=== PATIENT | male | born 1945 | race Caucasian/White ===

== ENCOUNTER 2016-04-24 17:06 | Observation (INO) | payer MEDICARE, OTHER ==
[~2016-04-24] VITALS: Ht 165.1 cm; Wt 85.2 kg
[~2016-04-24 17:06] MED LIST: OMPR20CCR PO; SIMV40TA5 PO; TERA10CA5 PO
[2016-04-24 17:24] VITALS: BP 156/103; PULSE 86; RESP 12; O2SAT 98
--- NOTE | 2016-04-24 18:30 | DRSVH ---
PROCEDURE: CT BRAIN WITHOUT CONTRAST ([id number]) INDICATIONS: fall, head trauma, LOC TECHNIQUE: Noncontrast 4.5 mm thick angled axial sections acquired from the foramen magnum to the vertex, with c oronal reformats. COMPARISON: None. FINDINGS: Image quality: Excellent. CSF spaces: Basal cisterns are patent. No extra-axial fluid collections. Ventricles are normal in size and shape. Brain: No midline shift. No intracranial masses or hemorrhage. Murillo-white matter interface is norm al. Skull and face: Calvarium and visualized facial bones are intact, without suspicious lesions. Sinuses: Visualized sinuses and mastoids are clear. IMPRESSION: No brain parenchymal injury found, no intracranial hemorrhage identified. Dictated by: Pavan Simmons M.D. on 04/24/2016 at 18:28 Approved by: Pavan Simmons M.D. on 04/24/2016 at 18:29
[2016-04-24 18:48] VITALS: BP 138/96; PULSE 14; RESP 14
[2016-04-24 19:06] LABS: BASOPHILS % (AUTO) 0.6 % (0-3); EOSINOPHILS % (AUTO) 0.6 % (0-5); MONOCYTES % (AUTO) 7.8 % (4-12); Mean Corpuscular Hemoglobin 31.5 pg (27.0-35.0); Mean Corpuscular Volume 90.6 fL (81-100); Platelet Count 145 bil/L (150-400)
[2016-04-24 19:21] LABS: TROPONIN T < 0.010 ug/L (0.0-0.011)
[2016-04-24] MEDS ORDERED: Acetaminophen IV 1,000 MG in IV Premix 1 EACH IV ONE (19:25)
[2016-04-24 19:27] LABS: Magnesium 2.1 mg/dL (1.6-2.6)
[2016-04-24 19:50] LABS: APPEARANCE,URINE CLEAR (CLEAR,HAZY); COLOR,URINE YELLOW (YELLOW); OCCULT BLOOD,URINE TRACE (NEGATIVE); UROBILINOGEN,URINE NORMAL (NORMAL)
[2016-04-24] MEDS ORDERED: 0.9% Sodium Chloride 1,000 ML IV ONE ×2 (19:50→21:25)
[2016-04-24 20:23] VITALS: BP 135/94; PULSE 85; RESP 10; O2SAT 95
--- NOTE | 2016-04-24 20:26 | ED.REPORT ---
HPI-Trauma Minor / Fall Date of Service Apr 24, 2016 ED Provider: Aashish Leigh DO 70yoM with PMH remarkable for GERD and hyperlipidemia presents with ground level fall. The fall reportedly occurred after the patient bumped into his on flat linoleum. The patient has had retrograde amnesia where he does not remember recent events up to three weeks ago when his mother was in the hospital requiring surgery, however fpc memory is intact. The patient denies headaches, neck pain, changes in vision or hearing, trouble with focal weakness or trouble with coordination. The patient has fallen once prior years ago when diagnosed with a UTI. The patient does not have a history of heart arrhythmia and is not on any blood thinner. There is no reported loss of bowel or bladder control. The states that the patient was unresponsive for a few seconds before regaining consciousness as normal. Patient denies any chest pain or palpitations. Nursing Notes Stated Complaint: FALL Chief Complaint: Head, Face, Neck Trauma Nursing Notes Reviewed: Yes Allergies: Coded Allergies: No Known Drug Allergies (Verified Allergy, Unknown, 04/24/16) Scheduled Doxycycline Hyclate (Doxycycline Hyclate) 50 Mg Capsule 1 TABLET PO DAILY Metronidazole (Metronidazole Cream) 45 Gm Cream..g. 1 APPLIC TOP BID Omeprazole (Omeprazole) 20 Mg Capsule.dr 20 MG PO HS Simvastatin (Simvastatin) 40 Mg Tablet 40 MG PO HS Terazosin (Terazosin) 10 Mg Capsule 10 MG PO HS General Time Seen by MD: 17:45 Chief Complaint Fall Hx Obtained From: Patient, Spouse Arrived By: Ambulance Onset Occurred: 1 - 4 hours ago Symptom Duration: Since onset (amnesia since onset) Caused by: Fall on ground Context: Immunizations Unknown Recent Healthcare: No recent doctor visit, No recent hospitalization Similar Sx Previous: No Risk Factors IC Bleed Risk Stratification Risk factors reviewed Nexus C-Spine Criteria No post midline tendernes, Not intoxicated, Normal level or alertness, No focal neuro deficits, No distracting injuries Head CT Imaging Patient Presents WITH: PostTraumatic Amnesia, PROCEED WITH INDICATIONS Non Contrast CT Indicated For: >/= 60 yrs Age Post Traumatic Amnesia Short Term Memory Loss WITH Loss of Conciousness Patient Presents WITHOUT: PostTraumatic Amnesia, PROCEED W/ CONSIDERATIONS RF Statements: Risk factors reviewed Past Medical History Past Medical History on alpha inhibitor consistent with BPH treatment hospitalized once in 40s for intestinal infection without senior care complications Reports: GERD, Hyperlipidemia Past Surgical History skin cancer in approximately 2010 Smoking History Former Smoker Social History Alcohol Use: "Social" Drug Use: Denies drug use Other Social History: Good social support, , Local resident ([place]) Ambulatory Status Independent Review of Systems Basic Review of Systems Cardiovascular: No chest pain, No dyspnea on exertion, No orthopnea, No parox noct dyspnea, No palpitations GI: No abdominal pain, No anorexia, No nausea, No vomiting : No dysuria, No frequency Hematologic: No bleeding, No bruising Endocrine: No cold intolerance, No heat intolerance, No weight gain, No weight loss Allergy / Immune: No allergy Psychiatric: Normal thought content Constitutional: Denies: Chills, Fever Eyes: Denies: Blurred bilateral, Eye pain bilateral, Visual loss bilateral Ears / Nose / Throat: Denies: Earache bilateral, Hearing loss bilateral, Sore throat, Throat pain, Voice change Respiratory: Denies: Dyspnea on exertion, Non-productive cough, Pleuritic pain Musculoskeletal: Denies: Back pain, Extremity pain, Joint pain, Neck pain, Thoracic pain Skin: Denies Bruising, Denies Rash, Denies Unexplained bruises Neurologic: Denies: Bladder dysfunction, Bowel dysfunction, Dizziness, Focal weakness, Headache, Numbness, Slurred speech, Spinning sensation, Vision change Complete sys rev & neg: except as marked. Physical Exam Initial Vital Signs Initial VS: Reviewed Head / Eyes: Atraumatic, Normocephalic, PERRL ENT: Mucous membranes moist, Conjunctiva normal, No scleral icterus Respiratory: Breath sounds normal, Clear to auscultation, No respiratory distress Cardiovascular: Intact distal pulses Abdomen / GI: Soft, Non-tender, No guarding, No rebound, No distention Back: No CVA tenderness Lymphatic: No lymphadenopathy Extremities: Vascular intact, Neuro intact, No swelling, No tenderness Skin: Warm, Dry, No cyanosis Neurologic: Alert, Oriented, Nonfocal Psychiatric: Mood/affect normal, Behavior normal, Normal thought content General/Constitutional: Awake, Alert, No acute distress, Well developed, Cooperative, Not toxic appearing Neck: Atraumatic, Supple, Full range of motion, No swelling, Non-tender, No midline vertebral tend, No JVD, No carotid bruit, Thyroid NL, No tracheal deviation Head / Eyes: Atraumatic, Normocephalic, PERRL, EOMI, No periorbital redness, No periorbital swelling, No scleral icterus, Conjunctiva NL ENT: Atraumatic, Airway patent, Mucous membranes moist, Pharynx NL dual uvula Respiratory / Chest: Breath sounds NL, Breath sounds = bilat, No respiratory distress, No rales, No rhonchi, No wheezing, No chest tenderness, No chest wall deformity, No crepitus Cardiovascular: Heart rate NL, No murmurs, No rubs, Peripheral circulation NL, Pulses = bilaterally Heart Rate / Rhythm: Positive: Irreg irregular rhythm no peripheral edema Abdomen: Atraumatic, Soft, Non-tender, No guarding, No rebound, BS normoactive , No distention Neurologic: Oriented X3, Speech NL, No motor deficits, No sensory deficits, CN II - XII intact, Cerebellar NL, Gait NL retrograde amnesia up to 4 weeks till time of fall Psychiatric: Affect NL, Mood NL, Cognitive function NL, Thought content NL Interpretation & Diagnostics Lab Results Interpretation Test 04/24/16 17:55 04/24/16 19:15 Hold Purple Top Tube Received (Received) Prothrombin Time 10.7sec (8.1-12.5) Prothromb Time International Ratio 1.00ratio Hold Blue Top Tube Received (Received) Magnesium Level 2.1mg/dL (1.6-2.6) Hold Red Top Tube Received (Received) Hold [place] Top Tube Received (Received) Hold Garcia Top Tube Received (Received) Urine Color Yellow (YELLOW) Urine Appearance Clear (CLEAR,HAZY) Urine pH 5.0 (5.0-8.0) Urine Specific [place] 1.020 (1.003-1.035) Urine Protein Negativemg/dL (NEG,TRACE) Urine Glucose (UA) Negativemg/dL (NEGATIVE) Urine Ketones Negativemg/dL (NEGATIVE) Urine Occult Blood Trace (NEGATIVE) Urine Nitrite Negative (NEGATIVE) Urine Bilirubin Negative (NEGATIVE) Urine Urobilinogen Normalmg/dL (NORMAL) Urine Leukocyte Esterase Negative (NEGATIVE) Urine RBC 0-2/hpf (0-2) Urine WBC 0-5/hpf (0-5) Urine Epithelial Cells Few/hpf (NONE-MOD) Urine Crystals None seen (NONE SEEN) Urine Bacteria Few/hpf (NONE-FEW) Urine Hyaline Casts None/lpf (NONE) Urine Granular Casts None seen (NONE SEEN) Urine Waxy Casts None seen (NONE SEEN) Urine Red Blood Cell Casts None seen (NONE SEEN) Urine White Blood Cell Casts None seen (NONE SEEN) Urine Mucus None seen (None Seen) Urine Trichomonas None seen (NONE SEEN) Urine Yeast None (NONE SEEN) Urinalysis Comment None Urine Culture Reflexed Not indicated Re-Eval/Medical Decision Med Decision/Clinical Course 70yoM with GERD, HLD, and BPH presents with syncope. Patient denies chest pain or heart flutter, and family reports no complaints prior to syncope. The patient reportedly had no post ictal period and no new medications added. Neurologic exam shows only retrograde amnesia with normal neurologic exam patient is alert and oriented x2 without date. CBC only shows mild thrombocytopenia. CMP shows elevated Cr and decreased GFR. EKG and Tele shows consistent high PVC burden. Differential diagnosis is vaso-vagal versus dysarrhythmia less likely PE, Seizure, TIA. Counseled Regarding: Diagnosis, Lab results, Need for follow-up, Need for admission (specifically only observation) Discharge & Departure Impression: Primary Impression: Vasovagal syncope Additional Impressions: Vbjrk-nj-htatxsp kidney injury BPH (benign prostatic hypertrophy) Prostatic enlargement morphology: unspecified morphology Lower urinary tract symptom presence: presence of symptoms unspecified Qualified Code: N40.0 - Enlarged prostate without lower urinary tract symptoms Thrombocytopenia Ruled Out: Intracranial bleed, Myocardial infarction, Pulmonary embolism Disposition: ADMITTED TO HOSPITAL Discharge Condition All VS Reviewed: Yes Condition: Stable Referrals: Loco Blue DO (PCP) Attending Statement I saw and examined this patient with Dr. Noel Damon and agree with the above documentation. Although it is felt that this was a vasovagal syncopal episode, a large group of family members who is present with him here today is very uncomfortable taking him home given what they saw happen with his syncopal episode. We have not seen anything here in the emergency room that gives us cause for concern with his labs, head CT, EKG, and telemetry monitoring. He appeared a little dry with an elevation of his creatinine and he received 1 L normal saline IV fluids in the emergency department. Family requesting an observation admission to make sure he has no further episodes. We discussed with him at length the pros and cons of the hospital admission and they are adamant about an admission. He will be placed on telemetry monitoring and may have further tests that could include an echocardiogram or MRI of the brain to further evaluate him during the admission copies to: Loco Blue Nicholas K DO Apr 24, 2016 18:57 Aashish Leigh DO May 03, 2016 13:08 (NEGATIVE) Urine Occult Blood Trace (NEGATIVE) Urine Nitrite Negative (NEGATIVE) Urine Bilirubin Negative (NEGATIVE) Urine Urobilinogen Normalmg/dL (NORMAL) Urine Leukocyte Esterase Negative (NEGATIVE) Urine RBC 0-2/hpf (0-2) Urine WBC 0-5/hpf (0-5) Urine Epithelial Cells Few/hpf (NONE-MOD) Urine Crystals None seen (NONE SEEN) Urine Bacteria Few/hpf (NONE-FEW) Urine Hyaline Casts None/lpf (NONE) Urine Granular Casts None seen (NONE SEEN) Urine Waxy Casts None seen (NONE SEEN) Urine Red Blood Cell Casts None seen (NONE SEEN) Urine White Blood Cell Casts None seen (NONE SEEN) Urine Mucus None seen (None Seen) Urine Trichomonas None seen (NONE SEEN) Urine Yeast None (NONE SEEN) Urinalysis Comment None Urine Culture Reflexed Not indicated Re-Eval/Medical Decision Med Decision/Clinical Course 70yoM with GERD, HLD, and BPH presents with syncope. Patient denies chest pain or heart flutter, and family reports no complaints prior to syncope. The patient reportedly had no post ictal period and no new medications added. Neurologic exam shows only retrograde amnesia with normal neurologic exam patient is alert and oriented x2 without date. CBC only shows mild thrombocytopenia. CMP shows elevated Cr and decreased GFR. EKG and Tele shows consistent high PVC burden. Differential diagnosis is vaso-vagal versus dysarrhythmia less likely PE, Seizure, TIA. Counseled Regarding: Diagnosis, Lab results, Need for follow-up, Need for admission (specifically only observation) Discharge & Departure Impression: Primary Impression: Vasovagal syncope Additional Impressions: Xbhga-jy-twkpmft kidney injury BPH (benign prostatic hypertrophy) Thrombocytopenia Ruled Out: Intracranial bleed, Myocardial infarction, Pulmonary embolism Disposition: ADMITTED TO HOSPITAL Discharge Condition All VS Reviewed: Yes Condition: Stable Referrals: Loco Blue DO (PCP) copies to: Loco Blue Nicholas K DO Apr 24, 2016 18:57
[2016-04-24] MEDS ORDERED: Polyethylene Glycol (PEG) 17 Gm Powder PO PRN (21:25)
[2016-04-24] MEDS ORDERED: Ondansetron 2 mg/mL 2 mL Inj IVPUSH PRN (21:25)
[2016-04-24] MEDS ORDERED: Alum-Mag Hydrox-Simeth 30 mL Suspension PO PRN (21:25)
[2016-04-24] MEDS ORDERED: DOXY50CA2 PO (21:55)
[2016-04-24 22:18] VITALS: BP 135/89; PULSE 86; RESP 13; O2SAT 97
[2016-04-24 22:23] VITALS: BP 112/76; PULSE 90; RESP 16; O2SAT 98
--- NOTE | 2016-04-24 22:44 | PCM.HPMED ---
Subjective Date of Service Apr 24, 2016 Primary Provider: Admitting Physician: Akhil Bradford MD Primary Care Physician: Loco Blue DO Attending Physician: Admit Status: From the Emergency Department Chief Complaint: Syncope Ground level fall History of Present Illness: 70-year-old male with hyperlipidemia, GERD, BPH presents to the emergency department after experiencing ground-level fall with syncope with loss of consciousness for a few seconds. Patient was in his kitchen reaching up for a bowl. On his way down he bumped his and fell to the ground. She witnessed him fall to the ground and bumped the back of his head. She reports he had his eyes only partially open with his job moving back and forth for a few seconds before he returned to full consciousness. He does have some anterograde amnesia surrounding the event as he does not remember falling, the paramedics transported him, or even talking to his nephew on the phone once in the emergency department. The only recent medication change is patient started taking doxycycline and metronidazole cream for facial infection on April 07. He currently reports a mild 1/10 headache in the back. He reports no dizziness , lightheadedness, chest pain, shortness of breath, abdominal pain, difficulty urinating, edema, diarrhea, or constipation. Review of Systems: A comprehensive review of systems was conducted with the patient and found to be negative except as above in the History of Present Illness. Allergies Coded Allergies: No Known Drug Allergies (Verified Allergy, Unknown, 04/24/16) Home Medications 1. Terazosin 2. Simvastatin 3. Omeprazole 4. Doxycycline hyclate 5. Metronidazole cream PMH 1. Benign prostatic hyperplasia 2. GERD 3. Hyperlipidemia Surgical History Excision for skin cancer 3. Social History Occupation: former truck despatcher, retired Hx Alcohol Use: Yes (occasionally) Hx Tobacco Use: No Smoking Status: Former Smoker Living Arrangement: with Family Exam Vital Signs Vital Sign - Last Date Time Temp Pulse Resp B/P Pulse Ox O2 Delivery O2 Flow Rate FiO2 04/24/16 20:23 85 10 135/94 95 Room Air 04/24/16 17:24 36.6 Exam General: No acute distress, well-developed, well-nourished, appropriately interactive HEENT: Normocephalic, atraumatic. External ears without defect. Pupils equal, round, and reactive to light and accommodation. Anicteric sclerae, moist conjunctivae, and no lid lag. Oropharynx free of erythema and cobble stoning with moist mucosa. Neck: Supple with full range of motion. No jugular venous distension. No bruits. No lymphadenopathy or thyromegaly. Cardiovascular: Regular rate, irregular with occasional PVCs, no murmurs, rubs, or gallops appreciated Pulmonary: Clear to auscultation bilaterally with no crackles, wheezes, or rhonchi. Normal respiratory effort with no use of accessory muscles. Abdomen: Bowel tones present. Soft, nontender, nondistended. No hepatosplenomegaly or masses appreciated. Extremities: No clubbing, cyanosis, edema, or lymphadenopathy appreciated. Skin: Normal temperature, turgor, and texture; no rash, ulcers, or subcutaneous nodules appreciated. Neurological: Cranial nerves grossly intact. Normal muscle strength, tone, and bulk. Coordination, and sensory function within normal limits. No known gait impairment. Psychiatric: Normal mood and affect. Alert and oriented to person, place, year, and situation. Lab and Diagnostics Result Diagram: 04/24/[id number] X-Rays, CTs and MRIs PROCEDURE: CT BRAIN WITHOUT CONTRAST ([id number]) IMPRESSION: No brain parenchymal injury found, no intracranial hemorrhage identified. Dictated by: Pavan Simmons M.D. on 04/24/2016 at 18:28 Assessment & Plan 70-year-old male with hyperlipidemia, GERD, BPH presents to the emergency department after experiencing ground-level fall with syncope with loss of consciousness for a few seconds. 1. Acute Syncope Likely vasovagal syncope with ground-level fall, present on admission, acute Monitor patient on telemetry overnight Tylenol when necessary for mild headache 2. Possible chronic kidney disease, present on admission, nonacute Patient's creatinine is 1.48 on admission with an eGFR of 50. Per outpatient records 03/18/2016 patient's creatinine 1.50 with an EGFR of 47. Patient given fluid resuscitation with 2 L normal saline, urinalysis unremarkable 3. Facial infection, present on admission, nonacute Patient was seen by dermatology on April 07 and has been taking doxycycline orally and metronidazole cream. This treatment is expected to be for 30 days per prescription. Continue doxycycline 50 mg daily 4. Likely benign prostatic hyperplasia, present on admission, chronic Patient reports taking Terazosin for prostate. Per patient request hold medication while under observation status. Other chronic problems Hyperlipidemia, well controlled. Hold simvastatin per patient request GERD, chronic, hold omeprazole per patient request DVT prophylaxis: Subcutaneous heparin When necessary Tylenol for pain, senna and MiraLAX for bowel regimen, Maalox for GI upset. Patient Status: Patient is admitted under observation status with expected length of stay less than 2 midnights due to severity of presenting symptoms, risk of adverse event Pain Evaluation: Adequate Pain Control GI Prophylaxis: Not indicated VTE Prophylaxis: Sub-Q Heparin (Unfractionated) VTE Mechanical Devices: Intermittant Pneumatic CD Resuscitation Status: CPR: Attempt Resuscitation Attending Statement The patient was seen and examined together with Dr. Gastelum on 04/24 and I agree with the history, exam and plan as outlined in the note above. Continuing IV fluids. Wells score low therefore less likely Pulmonary embolism. Monitor on telemetry to rule out underlying arrhythmia Clarissa Gastelum DO Apr 24, 2016 20:38 Akhil Bradford MD Apr 25, 2016 00:01
[2016-04-24] MEDS ORDERED: TERA10CA5 PO (22:48)
[2016-04-24] MEDS ORDERED: OMEP20CA11 PO (22:49)
[2016-04-24] MEDS ORDERED: SIMV40TA5 PO (22:49)
[2016-04-24] MEDS ORDERED: METR45CR TOP (22:50)
--- NOTE | 2016-04-24 23:22 | NUR ---
Admit Report received from Meche Hernandez. Pt arrived on unit at 2211 via w/c and transferred well without dizziness to bed. No complaints at this time. Admission and med rec done. Hourly rounding in place.
[2016-04-25] MEDS: Heparin 5,000 Unit/mL Inj SUBQ SCH ×2 (00:10→09:09)
[2016-04-25 01:47] VITALS: BP 120/82; PULSE 69; RESP 18; O2SAT 97
[2016-04-25 06:20] VITALS: BP 125/82; PULSE 74; RESP 16; O2SAT 99
[2016-04-25 06:52] LABS: BASOPHILS % (AUTO) 0.4 % (0-3); MONOCYTES % (AUTO) 10.8 % (4-12); Mean Corpuscular Hemoglobin 31.7 pg (27.0-35.0); Mean Corpuscular Volume 90.9 fL (81-100); NEUTROPHILS % (AUTO) 60.8 % (40-74); Platelet Count 137 bil/L (150-400)
[2016-04-25 06:58] VITALS: PULSE 84
[2016-04-25 07:48] LABS: TROPONIN T 0.01 ug/L (0.0-0.011)
[2016-04-25 08:31] VITALS: BP 128/92; PULSE 77; RESP 16; O2SAT 97
[2016-04-25 08:47] VITALS: PULSE 83
--- NOTE | 2016-04-25 11:09 | PCM.DIMED ---
Discharge Instructions Date of Service Apr 25, 2016 Dates of Hospitalization Apr 24, 2016 at 21:09 Discharge Diagnosis Discharge Diagnosis Syncopal episode Diet Low fat, Low Sodium, Heart Healthy Activity No restrictions Patient Instructions You were hospitalized with episode of syncope, further monitoring of your heart rhythms and images of brain and neck didn't show any abnormalities. Please note that if it's recurrent, this could the signs of impending stroke, please return to the hospital. Follow-up plan Please follow with your doctor in 2 weeks Follow-up Provider: Loco Blue DO Follow-up with PCP in: 2 weeks Jorge Noonan MD Apr 25, 2016 11:09
--- NOTE | 2016-04-25 11:44 | DRSVH ---
PROCEDURE: MRI STROKE PROTOCOL ([id number]) Pre- and post-contrast brain MRI, non-contrast brain MR angiogram, pre- and postcontrast neck MR logan ogram INDICATIONS: syncope fall TECHNIQUE: Brain: Noncontrast axial T1 spin echo, axial T2 fast spin echo, sagittal and axial FLAIR, coronal T2 fast spin echo, axial gradient echo, axial diffusion and ADC through the brain. After the administr ation of contrast, axial 3D VIBE of the cranial vasculature and brain. Brain MRA: Non-contrast 3-D time of flight MR angiogram, with multiple abrpalm-krxyoefwf-jyvexliqvs (MIP) reformats performed. Neck MRA: Axial and sagittal TruFISP through the neck. Coronal dynamic MR angiogram during administ ration of contrast in the arterial and venous phases, with 3-dimenstional jponjfg-ohmewcjxc-mzmhyzyaj n (MIP) reformats constructed from subtraction images. COMPARISON: None. FINDINGS: Image quality: Excellent. BRAIN: (Minimal susceptibility artifact is evident, likely related to metallic density overlying the right orbit and cheek region.) CSF spaces: Ventricles are normal in size and shape. Basal cisterns are patent. No extra-axial flu id collections. Brain: No intracranial bleeds or mass effects. Murillo-white matter interface is normal. There are a f ew small areas of increased flair signal identified within the deep white matter of the right frontal and left parietal lobes. These are likely age related. Diffusion weighted images show no acute isch emic insults. Brainstem appears normal. Normal intravascular flow voids are present. No abnormal i ntracranial enhancement. Skull and face: Calvarial marrow signal is normal. Orbits appear normal. Sinuses: Mucosal thickening is noted involving the ethmoid air sinus and the right mastoid air cells . Otherwise, the paranasal sinuses and left mastoid air cells are clear. The BRAIN MR ANGIOGRAM: Anterior circulation: Intracranial internal carotid arteries are normal in size and enhancement. Th e flow within the paired anterior cerebral arteries is normal and symmetric. The flow within the mid dle cerebral arteries is normal and symmetric. The anterior communicating artery is seen. No stenos es, occlusions, or aneurysms. Posterior circulation: The visualized portions of the vertebral arteries demonstrate normal caliber, and join to form a normal appearing basilar artery. The flow within the posterior cerebral arteries is normal and symmetric. No stenoses, occlusions, or aneurysms. NECK MR ANGIOGRAM: Carotids: Great vessels demonstrate a conventional anatomy as they arise from the aortic arch. The origins of the common carotid arteries appear patent. The calibers and courses of both common caroti d arteries are normal. The bifurcation regions appear normal bilaterally. The internal carotid emre alejandrina demonstrate normal course and caliber. Posterior circulation: The origins of the vertebral arteries appear patent. More superior portions of both vertebral arteries demonstrate normal course and caliber, and join to form a normal appearing basilar artery. Miscellaneous: Subclavian arteries appear patent. Pre-contrast images through the neck show no soft tissue abnormalities. IMPRESSION: BRAIN MRI: 1. No acute intracranial hemorrhage or ischemia. 2. No parenchymal masses or abnormal enhancement. 3. Minimal age-related parenchymal changes of the brain. 4. Mild sinus and right mastoid disease. BRAIN MR ANGIOGRAM: 1. Intracranial vessels are widely patent involving the anterior and posterior circulation. 2. No occlusion, aneurysm, or evidence to suggest dissection involving the intracranial vessels. NECK MR ANGIOGRAM: 1. Patent bilateral carotid arteries without significant atherosclerosis, evidence of dissection, oc clusion, or high-grade stenosis. 2. The vertebral arteries are patent without high-grade narrowing, significant atherosclerosis, evid ence of dissection, or occlusion. The estimate of stenosis included in the report of the imaging study was calculated using the NASCET method Dictated by: Chacho Gee M.D. on 04/25/2016 at 10:33 Approved by: Chacho Gee M.D. on 04/25/2016 at 10:42
--- NOTE | 2016-04-25 12:24 | NUR ---
CRYSTAL explained and signed. Copy of CRYSTAL and Medicare self administered medication information given.
[2016-04-25 12:55] VITALS: BP 127/87; PULSE 96; RESP 18; O2SAT 98
--- NOTE | 2016-04-25 14:41 | NUR ---
Social Work-initial assessment/discharge: Data:See initial assessment. Pt is a 70 y/o male who was admitted on 04/24/16 for syncope per H&P. Pt's insurance is [facility] and [facility] and PCP is Loco Blue DO. EMR reviewed. SW met with pt to discuss discharge planning, SW role explained. Pt resides at home with his where he remains independent with ADLS. Pt drives and does not use any DME. Pt has no HH or SNF history. Pt has no senior care care or VA benefits. SW discussed DPOA/ advanced directive, pt has completed this, SW encouraged a copy to be brought into the hospital. Per RN notes, pt has been up independent in his room. Pt is ready to discharge home today. Pt's family to provide transport home today. All updated and agreeable to plan. Assessment:Pt who is independent at baseline. Plan:Pt to discharge home today via POV. No discharge needs identified. All updated and agreeable to plan. SONYA Shell Addendum: 04/25/16 at 1445 by RICK COULTER Amended: Links added.
--- NOTE | 2016-04-25 15:13 | NUR ---
Discharge Pt to discharge to home with and family members; VSS, no c/o dizziness, steady gait with ambulation in room, IV access discontinued; no c/o pain, PO Tylenol earlier for CANDELARIO, effective. Pt and given written and verbal discharge instructions, list of medications and last dosages given to which and pt state understanding. Pt encouraged follow up with Dr Blue within 2 weeks, follow low sodium, heart healthy diet, no restrictions on activity and to come back to hospital if more syncopal episodes. All pt personal belongings with pt and family at time of discharge.
--- NOTE | 2016-04-25 15:44 | PCM.DC.MED ---
Discharge Summary Date of Service Apr 25, 2016 Dates of Hospitalization Date of Hospital Admission Apr 24, 2016 at 21:09 Date of Discharge: Apr 25, 2016 Providers: Admitting Physician: Akhil Bradford MD Primary Care Physician: Loco Blue DO Attending Physician: Akhil Bradford MD Diagnosis at Time of Discharge Diagnosis at Time of Discharge Syncopal episode Likely vasovagal syncope with ground-level fall chronic, stable #CKD #Facial infection #Likely benign prostatic hyperplasia #Hyperlipidemia #GERD Procedures XRay, CTs & MRIs PROCEDURE: MRI STROKE PROTOCOL ([id number]) Pre- and post-contrast brain MRI, non-contrast brain MR angiogram, pre- and postcontrast neck MR angiogram INDICATIONS: syncope fall TECHNIQUE: Brain: Noncontrast axial T1 spin echo, axial T2 fast spin echo, sagittal and axial FLAIR, coronal T2 fast spin echo, axial gradient echo, axial diffusion and ADC through the brain. After the administration of contrast, axial 3D VIBE of the cranial vasculature and brain. Brain MRA: Non-contrast 3-D time of flight MR angiogram, with multiple maximum- intensity-projection (MIP) reformats performed. Neck MRA: Axial and sagittal TruFISP through the neck. Coronal dynamic MR angiogram during administration of contrast in the arterial and venous phases, with 3-dimenstional zbdqtaz-ldwzuzxwz-sczygidzqm (MIP) reformats constructed from subtraction images. COMPARISON: None. FINDINGS: Image quality: Excellent. BRAIN: (Minimal susceptibility artifact is evident, likely related to metallic density overlying the right orbit and cheek region.) CSF spaces: Ventricles are normal in size and shape. Basal cisterns are patent. No extra-axial fluid collections. Brain: No intracranial bleeds or mass effects. Murillo-white matter interface is normal. There are a few small areas of increased flair signal identified within the deep white matter of the right frontal and left parietal lobes. These are likely age related. Diffusion weighted images show no acute ischemic insults. Brainstem appears normal. Normal intravascular flow voids are present. No abnormal intracranial enhancement. Skull and face: Calvarial marrow signal is normal. Orbits appear normal. Sinuses: Mucosal thickening is noted involving the ethmoid air sinus and the right mastoid air cells. Otherwise, the paranasal sinuses and left mastoid air cells are clear. The BRAIN MR ANGIOGRAM: Anterior circulation: Intracranial internal carotid arteries are normal in size and enhancement. The flow within the paired anterior cerebral arteries is normal and symmetric. The flow within the middle cerebral arteries is normal and symmetric. The anterior communicating artery is seen. No stenoses, occlusions, or aneurysms. Posterior circulation: The visualized portions of the vertebral arteries demonstrate normal caliber, and join to form a normal appearing basilar artery. The flow within the posterior cerebral arteries is normal and symmetric. No stenoses, occlusions, or aneurysms. NECK MR ANGIOGRAM: Carotids: Great vessels demonstrate a conventional anatomy as they arise from the aortic arch. The origins of the common carotid arteries appear patent. The calibers and courses of both common carotid arteries are normal. The bifurcation regions appear normal bilaterally. The internal carotid arteries demonstrate normal course and caliber. Posterior circulation: The origins of the vertebral arteries appear patent. More superior portions of both vertebral arteries demonstrate normal course and caliber, and join to form a normal appearing basilar artery. Miscellaneous: Subclavian arteries appear patent. Pre-contrast images through the neck show no soft tissue abnormalities. IMPRESSION: BRAIN MRI: 1. No acute intracranial hemorrhage or ischemia. 2. No parenchymal masses or abnormal enhancement. 3. Minimal age-related parenchymal changes of the brain. 4. Mild sinus and right mastoid disease. BRAIN MR ANGIOGRAM: 1. Intracranial vessels are widely patent involving the anterior and posterior circulation. 2. No occlusion, aneurysm, or evidence to suggest dissection involving the intracranial vessels. NECK MR ANGIOGRAM: 1. Patent bilateral carotid arteries without significant atherosclerosis, evidence of dissection, occlusion, or high-grade stenosis. 2. The vertebral arteries are patent without high-grade narrowing, significant atherosclerosis, evidence of dissection, or occlusion. The estimate of stenosis included in the report of the imaging study was calculated using the NASCET method Dictated by: Chacho Gee M.D. on 04/25/2016 at 10:33 Approved by: Chacho Gee M.D. on 04/25/2016 at 10:42 PROCEDURE: CT BRAIN WITHOUT CONTRAST ([id number]) IMPRESSION: No brain parenchymal injury found, no intracranial hemorrhage identified. Dictated by: Pavan Simmons M.D. on 04/24/2016 at 18:28 ECG 12 Lead sinus Brief History HPI obtained by 70-year-old male with hyperlipidemia, GERD, BPH presents to the emergency department after experiencing ground-level fall with syncope with loss of consciousness for a few seconds. Patient was in his kitchen reaching up for a bowl. On his way down he bumped his and fell to the ground. She witnessed him fall to the ground and bumped the back of his head. She reports he had his eyes only partially open with his job moving back and forth for a few seconds before he returned to full consciousness. He does have some anterograde amnesia surrounding the event as he does not remember falling, the paramedics transported him, or even talking to his nephew on the phone once in the emergency department. The only recent medication change is patient started taking doxycycline and metronidazole cream for facial infection on April 07. He currently reports a mild 1/10 headache in the back. He reports no dizziness , lightheadedness, chest pain, shortness of breath, abdominal pain, difficulty urinating, edema, diarrhea, or constipation. Hospital Course 70-year-old male with hyperlipidemia, GERD, BPH presents to the emergency department after experiencing ground-level fall with syncope with loss of consciousness for a few seconds. 1.Acute Syncope Likely vasovagal syncope with ground-level fall Patient was more total telemetry, did not show any signs of arrhythmias, pause, higher degree blocks. Symptoms were not recurrent. Orthostatic vitals were normal. CT head, MR stroke protocol didn't show any abnormalities of brain parenchyma, vasculature. Patient was neurologically intact, asymptomatic, deemed safe for discharge. Since patient is taking prazosin for blood pressure , it was recommended to switch to different agent if symptom recurs, and possibly further monitoring of heart rhythms with holters. chronic, stable #BEN vs CKD, 2. creatinine is 1.48, improved to 1.23 upon d/c, follow up with PCP #Facial infection, Patient was seen by dermatology on April 07 and has been taking doxycycline orally and metronidazole cream. This treatment is expected to be for 30 days per prescription, continued doxycycline 50 mg daily #Likely benign prostatic hyperplasia, continue taking Terazosin for prostate, discussed as above #Hyperlipidemia, well controlled. Hold simvastatin per patient request #GERD, chronic, hold omeprazole per patient request Exam Vital Signs (Last) Date Time Temp Pulse Resp B/P Pulse Ox O2 Delivery O2 Flow Rate FiO2 04/25/16 12:55 36.7 96 18 127/87 98 Room Air Exam NAD, comfortably laying down on the bed no JVD, MMM, no LAD RRR, nl s1, s2 no mrg CTAB, no w,c S,ND,NT,normoactive BS+ warm, no edema, pulses 2/2 Neuro:speech coherent, fluent, AAOx3 gait steady PERRLA, EOMI, symmetric face, no uvulae tongue deviation, able shrug shoulders equally able rotate neck equally on both sides FTN, dysdiadochokinesia intact, romberg negative, no pronator drift motor 5/5 throughout, sensory intact to dull touch Test 04/24/16 17:55 04/24/16 19:15 04/25/16 06:20 Hold Purple Top Tube Received (Received) Prothrombin Time 10.7sec (8.1-12.5) Prothromb Time International Ratio 1.00ratio Hold Blue Top Tube Received (Received) Magnesium Level 2.1mg/dL (1.6-2.6) Hold Red Top Tube Received (Received) Hold Lillian Top Tube Received (Received) Hold Garcia Top Tube Received (Received) Urine Color Yellow (YELLOW) Urine Appearance Clear (CLEAR,HAZY) Urine pH 5.0 (5.0-8.0) Urine Specific [place] 1.020 (1.003-1.035) Urine Protein Negativemg/dL (NEG,TRACE) Urine Glucose (UA) Negativemg/dL (NEGATIVE) Urine Ketones Negativemg/dL (NEGATIVE) Urine Occult Blood Trace (NEGATIVE) Urine Nitrite Negative (NEGATIVE) Urine Bilirubin Negative (NEGATIVE) Urine Urobilinogen Normalmg/dL (NORMAL) Urine Leukocyte Esterase Negative (NEGATIVE) Urine RBC 0-2/hpf (0-2) Urine WBC 0-5/hpf (0-5) Urine Epithelial Cells Few/hpf (NONE-MOD) Urine Crystals None seen (NONE SEEN) Urine Bacteria Few/hpf (NONE-FEW) Urine Hyaline Casts None/lpf (NONE) Urine Granular Casts None seen (NONE SEEN) Urine Waxy Casts None seen (NONE SEEN) Urine Red Blood Cell Casts None seen (NONE SEEN) Urine White Blood Cell Casts None seen (NONE SEEN) Urine Mucus None seen (None Seen) Urine Trichomonas None seen (NONE SEEN) Urine Yeast None (NONE SEEN) Urinalysis Comment None Urine Culture Reflexed Not indicated White Blood Count 5.2th/mm3 (3.8-10.1) Red Blood Count 4.86mil/mm3 (4.40-5.80) Hemoglobin 15.4g/dL (13.8-17.2) Hematocrit 44.2% (41.0-50.0) Mean Corpuscular Volume 90.9fL (81-100) Mean Corpuscular Hemoglobin 31.7pg (27.0-35.0) Mean Corpuscular Hemoglobin Concent 34.8% (32.0-37.0) Red Cell Distribution Width 13.3% (12.3-15.4) Platelet Count 137bil/L (150-400) Neutrophils (%) (Auto) 60.8% (40-74) Lymphocytes (%) (Auto) 26.8% (14-46) Monocytes (%) (Auto) 10.8% (4-12) Eosinophils (%) (Auto) 1.0% (0-5) Basophils (%) (Auto) 0.4% (0-3) Sodium Level 143mEq/L (134-144) Potassium Level 4.4mEq/L (3.5-5.2) Chloride Level 108mEq/L (97-108) Carbon Dioxide Level 19mmol/L (18-29) Blood Urea Nitrogen 14mg/dL (8-27) Creatinine 1.23mg/dL (0.76-1.27) Estimat Glomerular Filtration Rate 62mL/min (>59) Glucose Level 89mg/dL (60-99) Calcium Level 8.6mg/dL (8.5-10.1) Total Bilirubin 0.7mg/dL (0.0-1.2) Aspartate Amino Transf (AST/SGOT) 17U/L (0-50) Alanine Aminotransferase (ALT/SGPT) 19U/L (0-44) Alkaline Phosphatase 29U/L (25-160) Troponin T 0.010ug/L (0.0-0.011) Total Protein 6.0g/dL (6.4-8.4) Albumin 3.9g/dL (3.4-5.0) Discharge Medications Discharge Medications Doxycycline Hyclate (Doxycycline Hyclate) 50 Mg Capsule 1 TABLET PO DAILY ( Reported) Metronidazole (Metronidazole Cream) 45 Gm Cream..g. 1 APPLIC TOP BID (Reported) Omeprazole (Omeprazole) 20 Mg Capsule.dr 20 MG PO HS (Reported) Simvastatin (Simvastatin) 40 Mg Tablet 40 MG PO HS (Reported) Terazosin (Terazosin) 10 Mg Capsule 10 MG PO HS (Reported) Followup Plan Disposition: home Follow-up plan Please follow with your doctor in 2 weeks Discharge Diet: Low fat, Low Sodium, Heart Healthy Discharge Activity: No restrictions Patient Instructions You were hospitalized with episode of syncope, further monitoring of your heart rhythms and images of brain and neck didn't show any abnormalities. Please note that if it's recurrent, this could the signs of impending stroke, please return to the hospital. Follow-up Provider: Loco Blue DO Follow-up with PCP in: 2 weeks Time spent 65min Jorge Noonan MD Apr 25, 2016 15:44
== END 2016-04-25 15:08 | disposition home or self-care (01) ==
LOC: SED 17:06 → EDBD 17:06 → EDUNIT# 17:06 → MOC 20:50 → UNDOADMOB 20:50 → MOC 21:09
PROVIDERS: ADMIT Hospitalist; ATTEND Hospitalist
DX: R55 Syncope and collapse (principal); W18.39XA Other fall on same level, initial encounter; Y93.89 Activity, other specified; Y92.010 Kitchen of single-family (private) house as the place of occurrence of the external cause; Y99.8 Other external cause status; N18.9 Chronic kidney disease, unspecified; L08.9 Local infection of the skin and subcutaneous tissue, unspecified; E78.2 Mixed hyperlipidemia; K21.9 Gastro-esophageal reflux disease without esophagitis
CPT/HCPCS: 36415; 70450; 70549; 70553; 80053; 81000; 83735; 84484; 85025; 85610; 93005; 96361; 96374; 99285; A9585; G0378; J0131; J1644; J7030